=== PATIENT | male | born 1960 | race African-American/Black ===

== ENCOUNTER 2020-01-31 17:28 | Emergency (ER) | payer OTHER ==
[~2020-01-31] VITALS: Ht 175.3 cm; Wt 104.3 kg
--- NOTE | 2020-01-31 17:35 | NUR ---
PT BIB SELF C/O SUICIDAL IDEATION "Thoughts of killing myself NO plans." PT IS AAOX4, NOT IN RESPIRATORY DISTRESS, V/S STABLE, KEPT RESTED AND COMFORTABLE, WILL CONTINUE TO MONITOR.
--- NOTE | 2020-01-31 17:50 | NUR ---
SEEN AND EXAMINED BY .
--- NOTE | 2020-01-31 18:00 | NUR ---
URINE SPECIMEN COLLECTED AND SENT TO LAB.
[2020-01-31 18:30] LABS: APPEARANCE,URINE Clear (CLEAR); BACTERIA,URINE None seen /HPF (None Seen); BILIRUBIN,URINE Negative (NEGATIVE); BLOOD, URINE Negative Ery/uL (NEGATIVE); COLOR,URINE Yellow (YELLOW); KETONES,URINE 40 (NEGATIVE); LEUKOCYTE ESTERASE ,URINE Negative (NEGATIVE); NITRITE, URINE Negative (NEGATIVE); PH,URINE >9.0 (5.0-8.0); PROTEIN,URINE Negative (NEGATIVE); RBC,URINE 0-2 /HPF (0-2); SQUAMOUS EPITHELIAL CELL,UR Few /HPF (None Seen); UGLUCOSE Negative (NEGATIVE); UROBILINOGEN,URINE 0.2 EU/dL (0.2); WBC,URINE 0-2 /HPF (0-3)
[2020-01-31 18:32] LABS: BASOPHILS % (AUTO) 0.8 % (0.0-2.0); EOSINOPHILS % (AUTO) 2.5 % (0.0-6.0); HEMATOCRIT 44 % (39-51); HEMOGLOBIN 14.2 g/dL (13.5-17.5); LYMPHOCYTES % (AUTO) 38.5 % (20.0-44.0); MEAN CORPUSCULAR HGB CONC 33 g/dl (31.0-36.0); MEAN CORPUSCULAR VOLUME 86 fL (80-96); MONOCYTES # (AUTO) 0.7 /CMM (0.1-1.30); MONOCYTES % (AUTO) 13.4 % (2.0-12.0); NEUTROPHILS # (AUTO) 2.3 /CMM (1.8-8.9); NEUTROPHILS % (AUTO) 44.8 % (43.0-81.0); PLATELET COUNT (AUTO) 202 /CMM (150-450); RED BLOOD CELL COUNT(AUTO) 5.05 MIL/uL (4.5-6.0); WHITE BLOOD COUNT (AUTO) 5.1 K/uL (4.3-11.0)
[2020-01-31 18:40] LABS: CALCIUM, SERUM 9.4 mg/dL (8.5-10.1); CARBON DIOXIDE 27 mmol/L (21-32); CHLORIDE 102 mmol/L (98-107); CREATININE 1.4 mg/dL (0.6-1.3); GLUCOSE 96 mg/dL (74-106); POTASSIUM 4.7 mmol/L (3.5-5.1); SODIUM SERUM 137 mmol/L (136-145); UREA NITROGEN, BLOOD 23 mg/dL (7-18)
[2020-01-31 18:56] LABS: ALANINE AMINOTRANSFERASE 30 U/L (12-78); ALBUMIN 3.5 g/dL (3.4-5.0); ALCOHOL, BLOOD < 3 mg/dL (0-0); ALKALINE PHOSPHATASE 92 U/L (46-116); ASPARTATE AMINOTRANSFERASE 41 U/L (15-37); BILIRUBIN,TOTAL 0.4 mg/dL (0.2-1.0); SALICYLATE 3.4 mg/dL (2.8-20.0)
[2020-01-31 18:57] LABS: ACETAMINOPHEN 0 ug/ml (10-30)
[2020-01-31] MEDS ORDERED: DICYCLOMINE HCL 10 MG CAPSULE PO ONE (20:57)
[2020-01-31] MEDS ORDERED: PANTOPRAZOLE 40 MG VIAL ONE (20:57)
[2020-01-31] MEDS ORDERED: ONDANSETRON HCL/PF 4 MG/2 ML VIAL ONE (20:57)
[2020-01-31] MEDS ORDERED: FAMOTIDINE/PF INJ 20 MG/2 ML VIAL IV ONE (20:58)
--- NOTE | 2020-01-31 21:17 | NUR ---
SPOKE TO PT, PT STATED HE IS SUICIDAL WITH PLAN TO CUT HIS WRIST. -HI.
--- NOTE | 2020-01-31 21:43 | NUR ---
CLINICAL FAXED TO [facility] FOR VOLUNTARY ADMISSION.
--- NOTE | 2020-01-31 22:04 | NUR ---
accepted at [facility] [id number] [phone] --[phone] update once we have ambulanc eta
--- NOTE | 2020-01-31 22:08 | NUR ---
CALLED [facility] FOR BLS PICKUP. ETA ABOUT 2.5 HOURS
--- NOTE | 2020-01-31 22:23 | NUR ---
CALLED [facility] IN TAKE [phone] AND INFORMED THEM OF THE 2.5 HOUR ETA
[2020-01-31 23:20] VITALS: BP 149/89
--- NOTE | 2020-01-31 23:23 | NUR ---
REPORT GIVEN TO YAS GUERRA FOR ROB
--- NOTE | 2020-02-01 00:31 | NUR ---
REPORT GIVEN TO DONN BATISTA. PT TRANSFERED.
== END 2020-02-01 00:32 ==
LOC: ER 17:33
DX: R45.851 Suicidal ideations (principal); F19.10 Other psychoactive substance abuse, uncomplicated; I10 Essential (primary) hypertension; E11.9 Type 2 diabetes mellitus without complications; Z98.890 Other specified postprocedural states; Z59.0 Homelessness
CPT/HCPCS: 36415; 80048; 80076; 80305; 80307; 80329; 81001; 85025; 99285; G0480; 81000-TC; C9113; J2405; J3490

== ENCOUNTER 2020-09-01 07:46 | Emergency (ER) | payer OTHER ==
[~2020-09-01] VITALS: Ht 175.3 cm; Wt 108.9 kg
--- NOTE | 2020-09-01 08:03 | NUR ---
CAME IN FOR SUICIDAL IDEATION PLAN TO JUMP OFF A BUILDING, +HEARING VOICES, TO ER BED 14. HOOKED TO MONITOR. CHANGED TO HOSP GOWN, WARM BLANKET PROVIDED, PATIENT AAO X4. BREATHING EVEN AND UNLABORED. SITTER AT BEDSIDE FOR SAFETY. DR KIRAN AT BEDSIDE FOR EVAL
[2020-09-01] MEDS ORDERED: QUETIAPINE FUMARATE 100 MG TABLET PO STA (08:05)
--- NOTE | 2020-09-01 08:35 | NUR ---
URINE SAMPLE COLLECTED AND SENT TO LAB
--- NOTE | 2020-09-01 08:36 | NUR ---
RAPID COVID19 SWAB DONE AND SENT TO LAB
[2020-09-01 08:54] LABS: BASOPHILS # (AUTO) 0.1 /CMM (0.0-0.2); BASOPHILS % (AUTO) 0.9 % (0.0-2.0); HEMATOCRIT 46 % (39-51); LYMPHOCYTES # (AUTO) 1.9 /CMM (0.8-4.8); LYMPHOCYTES % (AUTO) 27.8 % (20.0-44.0); MEAN CORPUSCULAR HGB CONC 32 g/dl (31.0-36.0); MEAN CORPUSCULAR VOLUME 87 fL (80-96); MONOCYTES # (AUTO) 0.8 /CMM (0.1-1.30); MONOCYTES % (AUTO) 12.2 % (2.0-12.0); NEUTROPHILS # (AUTO) 3.9 /CMM (1.8-8.9); NEUTROPHILS % (AUTO) 58.1 % (43.0-81.0); PLATELET COUNT (AUTO) 231 /CMM (150-450); RED BLOOD CELL COUNT(AUTO) 5.31 MIL/uL (4.5-6.0); WHITE BLOOD COUNT (AUTO) 6.7 K/uL (4.3-11.0)
[2020-09-01 09:04] LABS: CALCIUM, SERUM 9.6 mg/dL (8.5-10.1); CARBON DIOXIDE 24 mmol/L (21-32); CHLORIDE 102 mmol/L (98-107); CREATININE 1.5 mg/dL (0.6-1.3); GLUCOSE 76 mg/dL (74-106); POTASSIUM 3.6 mmol/L (3.5-5.1); SODIUM SERUM 140 mmol/L (136-145); UREA NITROGEN, BLOOD 25 mg/dL (7-18)
[2020-09-01 09:19] LABS: ALANINE AMINOTRANSFERASE 31 U/L (12-78); ALCOHOL, BLOOD < 3 mg/dL (0-0); ALKALINE PHOSPHATASE 79 U/L (46-116); ASPARTATE AMINOTRANSFERASE 47 U/L (15-37); BILIRUBIN,DIRECT 0.2 mg/dL (0.0-0.2); BILIRUBIN,TOTAL 0.6 mg/dL (0.2-1.0); TOTAL PROTEIN, SERUM 8.2 g/dL (6.4-8.2)
[2020-09-01 09:28] LABS: ACETAMINOPHEN < 10 ug/ml (10-30)
[2020-09-01 09:37] LABS: BILIRUBIN,URINE NEGATIVE (NEGATIVE); BLOOD, URINE SMALL Ery/uL (NEGATIVE); COLOR,URINE YELLOW (YELLOW); LEUKOCYTE ESTERASE ,URINE NEGATIVE (NEGATIVE); NITRITE, URINE NEGATIVE (NEGATIVE); PH,URINE 5.5 (5.0-8.0); PROTEIN,URINE NEGATIVE (NEGATIVE); UGLUCOSE NEGATIVE (NEGATIVE); UROBILINOGEN,URINE 0.2 EU/dL (0.2)
[2020-09-01 10:27] LABS: BACTERIA,URINE Rare /HPF (None Seen); RBC,URINE 0-3 /HPF (0-2); WBC,URINE 0-2 /HPF (0-3)
[2020-09-01 10:28] LABS: SQUAMOUS EPITHELIAL CELL,UR Rare /HPF (None Seen)
--- NOTE | 2020-09-01 11:06 | NUR ---
Dope Sprayer met with the patient at bedside at [facility] ED. Patient presented to [facility] ED with suicidal ideation to jump off a building. Patient is alert and oriented x4. Patient is receptive to speaking to this SW. Patient is a 59 year-old male. Patient reported to this SW that he had gone to [facility] prior to [facility] and was informed he needed medical clearance. Patient reported to this SW that he has been homeless for approximately one year and had been staying at a [facility] however patient reported he cannot return. SW and patient discussed the need for homeless community resources and patient accepted these resources. Patient and SW discussed presenting complaint of suicidal ideation and patient reported that he remains suicidal as he is having auditory hallucinations. Patient reports these auditory hallucinations tell him to hurt himself. Patient denies visual hallucinations. Patients suicidal ideation plan to jump off a building remains. Patient denied homicidal ideation. Patient reported that he has been diagnosed with Schizophrenia and Bipolar several years ago. Patient reported that the last time he took his medications for Schizophrenia and Bipolar was last week and at this time does not have a prescription. SW and patient discussed voluntary psychiatric hospitalization. SW informed patient that this SW can refer the patient to [facility] however patient declined this referral as he wants to be referred to [facility]. SW will refer the patient to [facility] as requested. Plan: SW to fax clinicals to [facility] Intake (fax) and SW will inform Tray at [facility] regarding this referral. WALESKA will follow up with [facility] if no update is provided.
--- NOTE | 2020-09-01 11:41 | NUR ---
SW filled out homeless patient waiver form and left copy for patient to sign in patient's chart. Patient asked this SW to have him sign closer to transfer time as patient wanted to get some rest. WALESKA will follow-up with ED staff to ensure homeless patient waiver form is signed prior to departure. WALESKA provided the following resources to this patient: Substance Abuse resources provided included: [facility] Substance Abuse Self-Helpline ([facility]) ; CRI -HELP 26876 [facility]. [place] [address] ; [facility] [address] [facility] [address] ; [facility] 07195 [facility] [address] ; [facility] 400 [facility] [address]0004 ; [facility] 5850 Mino Gonzalez [facility] [address] ; Suzi [facility] 902 [facility] [address] ; [facility] Substance Abuse Helpline([facility] ; [facility] Family Counseling ; [facility] [place]; [facility] Aubrey; Cri-Help [place]; I-ADARP Inter Agency Drug Abuse Recovery Mino Gonzalez; [place] [facility] Sigurd; Carlos [place] Sigurd; Tarzana [facility], [facility]. [place]; Alcoholics Anonymous -SFV; Xk-Spbl-Qpftrwi ; Marijuana Anonymous -SFV; Narcotics Anonymous www.na.org. Hygiene: [facility] HillCA: [address] Dwaine Schofield ; [facility] 22872 [facility] Reseda ; [facility] [address]01 [place] Avluan [place] . Food Resources: [place] Food Pantry at [facility]- [address] [place]; Meet Each Need with Dignity ([facility]) 20959 [facility] Heart; [facility] Food Pantry 4392 ChlorideRegional Health Services [facility]; [facility] 1613 [place] luan [place]. Mental Health resources provided: [facility] 114[address] [place], [place] [address] ; [facility] Mental Health Center, Inc. 02428 [facility] UNIT 2, [place], [place] [id number] ; [facility] [address] M[address] DrBaltimore, [place] [phone] ; [facility] [address] [place], [place] [phone] Healthcare Clinics: [facility] 6551 [facility], [address] [place]. [place] ; [facility] 6801 [facility] [address] [place] [address]; [facility] [address]625 [facility]. [place] [phone] Winter Shelters: [facility] [place] [facility] [address] [facility] [address] 67 Coed; [facility] [place] AV YouthBuild [address] St[facility] Falls [facility], [address] 27 Co[place]; Hope of the [place]* [facility] Confidential (please call for location) 52 Coed; [facility] [place] CINDY Mondragon Orem 510 Cindy Cid [address] 75 Coed; [facility] [place] [facility] [address] [place], [address] 15 Women; [facility] Association [facility] 566 S. [facility] [address] 49 Coed; First To Serve* [facility] 7600 [facility], [address] 73 Coed; [facility] [address], [address] 20 Women; Home At Last [facility] [address] [place] [address], [address] 63 Coed; [facility] [address], [address] 20 Women; Home At Last [address], [address] 63 Coed; Home at Last [facility] Facility [address], [address] 20 Males; Home At Last [facility] MARCIAL Baptist [address] , [address] 20 EDWIGE; [facility] [place] * Library [address] [address] 80 Coed; Winter Retirement Program Sites Transportation fish bait picker at [facility] Stop (near the Gas Station) - Louise Redmond/CINDY Alexandre [address] Time: 3:30p.m. to 4:15p.m. and [facility] at [address] [facility] [address] Time: 5:00p.m. No walk-ins allowed. Individuals must be picked up at [facility] ([address] [place] [address]) to access the site. Transportation by bus.
--- NOTE | 2020-09-01 11:54 | NUR ---
SW followed up with [facility] and spoke with Janay. Janay reported to this SW patient clinicals have been received and acceptance pending from nursing solar installation crew supervisor. Janay informed this SW that [facility] would provide accepting information to this SW following acceptance from nursing solar installation crew supervisor. SW remains available for all needs regarding this patient.
--- NOTE | 2020-09-01 12:04 | NUR ---
SW received a call from [facility] Intake client account representative Art. Art provided accepting information to this SW. Patient will be under the care [place] [address]. Patient will be going to Unit 2. Number for report is . Plan: SW will provide this information to ED staff to assist in a safe and proper transfer for this patient.
--- NOTE | 2020-09-01 12:14 | NUR ---
[place] [address]. Patient will be going to Unit 2. Number for report is .
--- NOTE | 2020-09-01 12:19 | NUR ---
CALLED [facility] [phone] [facility] #[phone] WILL CALL US WITH A TRANSPORT.
--- NOTE | 2020-09-01 12:32 | NUR ---
[facility] CALLED ETA 45 MINS WITH [facility].
--- NOTE | 2020-09-01 13:29 | NUR ---
REPORT GIVEN TO LEAH GUERRA [facility]
[2020-09-01 13:30] VITALS: BP 148/86
--- NOTE | 2020-09-01 13:30 | NUR ---
Patient picked up by [facility] UNIT 721 in stable condition. Patient [facility] be transferred to [facility]. Clinicals provided to be given to the hosp.
== END 2020-09-01 13:32 ==
LOC: ER 07:50
DX: F31.9 Bipolar disorder, unspecified (principal); R45.851 Suicidal ideations; Z91.14 Patient's other noncompliance with medication regimen; Z20.828 Contact with and (suspected) exposure to other viral communicable diseases; F20.9 Schizophrenia, unspecified; F15.10 Other stimulant abuse, uncomplicated; F14.10 Cocaine abuse, uncomplicated; N28.9 Disorder of kidney and ureter, unspecified; Z59.0 Homelessness; I10 Essential (primary) hypertension
CPT/HCPCS: 36415; 80048; 80076; 80299; 80307; 80320; 81001; 85025; 87426; 99285; C9803; G0480

== ENCOUNTER 2020-09-30 21:50 | Emergency (ER) | payer OTHER ==
[~2020-09-30] VITALS: Ht 175.3 cm; Wt 108.9 kg
[2020-09-30 22:37] LABS: BASOPHILS # (AUTO) 0.1 /CMM (0.0-0.2); BASOPHILS % (AUTO) 1.2 % (0.0-2.0); EOSINOPHILS % (AUTO) 2.7 % (0.0-6.0); HEMATOCRIT 45 % (39-51); HEMOGLOBIN 14.6 g/dL (13.5-17.5); LYMPHOCYTES # (AUTO) 2.1 /CMM (0.8-4.8); LYMPHOCYTES % (AUTO) 36.7 % (20.0-44.0); MEAN CORPUSCULAR HGB CONC 32 g/dl (31.0-36.0); MEAN CORPUSCULAR VOLUME 88 fL (80-96); MONOCYTES # (AUTO) 0.6 /CMM (0.1-1.30); MONOCYTES % (AUTO) 9.9 % (2.0-12.0); NEUTROPHILS # (AUTO) 2.8 /CMM (1.8-8.9); NEUTROPHILS % (AUTO) 49.5 % (43.0-81.0); PLATELET COUNT (AUTO) 221 /CMM (150-450); RED BLOOD CELL COUNT(AUTO) 5.18 MIL/uL (4.5-6.0); WHITE BLOOD COUNT (AUTO) 5.7 K/uL (4.3-11.0)
[2020-09-30 22:40] LABS: BILIRUBIN,URINE SMALL (NEGATIVE); COLOR,URINE YELLOW (YELLOW); LEUKOCYTE ESTERASE ,URINE Negative (NEGATIVE); NITRITE, URINE Negative (NEGATIVE); PH,URINE 5.5 (5.0-8.0); PROTEIN,URINE 100 mg/dl (NEGATIVE); UGLUCOSE Negative (NEGATIVE); UROBILINOGEN,URINE 0.2 EU/dL (0.2)
[2020-09-30 23:07] LABS: BACTERIA,URINE Rare /HPF (None Seen); SQUAMOUS EPITHELIAL CELL,UR Few /HPF (None Seen); WBC,URINE NONE SEEN /HPF (0-3)
[2020-09-30 23:25] LABS: CALCIUM, SERUM 9.2 mg/dL (8.5-10.1); CARBON DIOXIDE 27 mmol/L (21-32); CHLORIDE 103 mmol/L (98-107); CREATININE 1.1 mg/dL (0.6-1.3); GLUCOSE 85 mg/dL (74-106); SODIUM SERUM 139 mmol/L (136-145); UREA NITROGEN, BLOOD 10 mg/dL (7-18)
[2020-09-30 23:31] LABS: ALANINE AMINOTRANSFERASE 30 U/L (12-78); ALBUMIN 3.6 g/dL (3.4-5.0); ALCOHOL, BLOOD < 3 mg/dL (0-0); ALKALINE PHOSPHATASE 104 U/L (46-116); ASPARTATE AMINOTRANSFERASE 25 U/L (15-37); BILIRUBIN,DIRECT 0.1 mg/dL (0.0-0.2); BILIRUBIN,TOTAL 0.4 mg/dL (0.2-1.0); TOTAL PROTEIN, SERUM 7.5 g/dL (6.4-8.2)
[2020-09-30 23:32] LABS: ACETAMINOPHEN 0 ug/ml (10-30)
--- NOTE | 2020-10-01 00:54 | NUR ---
CALL FROM LAB. RAPID COVIF NEGATIVE.
--- NOTE | 2020-10-01 01:41 | NUR ---
CLINICAL AND FACESHEET FAXED TO [facility] INTAKE FOR VOLUNTARY PSYCH ADMISSION.
--- NOTE | 2020-10-01 02:45 | NUR ---
CALL FROM MICHELLE MARQUEZ. PT ACCEPTED BY DR WHIPPLE. UNIT 1. # FOR REPORT [phone]
--- NOTE | 2020-10-01 02:51 | NUR ---
[facility] CALLED FOR TRANSPORT. [phone]
--- NOTE | 2020-10-01 04:51 | NUR ---
[facility] eta [phone]
--- NOTE | 2020-10-01 05:47 | NUR ---
Report given to Devin GUERRA for continuation of care.
[2020-10-01 06:55] VITALS: BP 173/98
--- NOTE | 2020-10-01 06:55 | NUR ---
report given to emt from [facility] 23 for continuity of care. pt aware of transport. pt aox4 rr even and unlabored. no acute distress noted. per apa took over care, pt placed on gurney to be transported to [facility].
== END 2020-10-01 06:57 ==
LOC: ER 21:53
DX: R45.851 Suicidal ideations (principal); F31.9 Bipolar disorder, unspecified; F19.10 Other psychoactive substance abuse, uncomplicated; I10 Essential (primary) hypertension; Z59.0 Homelessness; Z20.822 Contact with and (suspected) exposure to COVID-19
CPT/HCPCS: 36415; 80048; 80076; 80299; 80307; 80320; 81001; 85025; 87426; 99285; C9803; G0480

== ENCOUNTER 2021-02-03 09:57 | Emergency (ER) | payer OTHER ==
[~2021-02-03] VITALS: Ht 175.3 cm; Wt 108.9 kg
[2021-02-03 10:39] LABS: BASOPHILS # (AUTO) 0.1 /CMM (0.0-0.2); BASOPHILS % (AUTO) 0.7 % (0.0-2.0); EOSINOPHILS % (AUTO) 0.2 % (0.0-6.0); HEMATOCRIT 50 % (39-51); HEMOGLOBIN 16.2 g/dL (13.5-17.5); LYMPHOCYTES # (AUTO) 2.4 /CMM (0.8-4.8); LYMPHOCYTES % (AUTO) 23.1 % (20.0-44.0); MEAN CORPUSCULAR HGB CONC 32 g/dl (31.0-36.0); MEAN CORPUSCULAR VOLUME 88 fL (80-96); MONOCYTES # (AUTO) 1.2 /CMM (0.1-1.30); MONOCYTES % (AUTO) 11.4 % (2.0-12.0); NEUTROPHILS # (AUTO) 6.8 /CMM (1.8-8.9); NEUTROPHILS % (AUTO) 64.6 % (43.0-81.0); PLATELET COUNT (AUTO) 205 /CMM (150-450); WHITE BLOOD COUNT (AUTO) 10.5 K/uL (4.3-11.0)
[2021-02-03 10:47] LABS: CALCIUM, SERUM 10.2 mg/dL (8.5-10.1); CARBON DIOXIDE 25 mmol/L (21-32); CHLORIDE 103 mmol/L (98-107); CREATININE 1.4 mg/dL (0.6-1.3); GLUCOSE 121 mg/dL (74-106); POTASSIUM 3.8 mmol/L (3.5-5.1); SODIUM SERUM 139 mmol/L (136-145); UREA NITROGEN, BLOOD 16 mg/dL (7-18)
[2021-02-03] MEDS: QUETIAPINE FUMARATE 100 MG TABLET PO SCH (10:49)
--- NOTE | 2021-02-03 10:49 | NUR ---
MEDICATED ORDERED. SEE EMAR. PT STILL UNABLE TO PROVIDE URINE SPECIMEN AT THIS TIME.
[2021-02-03 10:54] LABS: ACETAMINOPHEN 0 ug/ml (10-30); ALANINE AMINOTRANSFERASE 35 U/L (12-78); ALBUMIN 4.3 g/dL (3.4-5.0); ALCOHOL, BLOOD < 3 mg/dL (0-0); ALKALINE PHOSPHATASE 101 U/L (46-116); ASPARTATE AMINOTRANSFERASE 35 U/L (15-37); BILIRUBIN,DIRECT 0.2 mg/dL (0.0-0.2); BILIRUBIN,TOTAL 0.6 mg/dL (0.2-1.0); TOTAL PROTEIN, SERUM 8.7 g/dL (6.4-8.2)
--- NOTE | 2021-02-03 11:29 | NUR ---
COVID SWAB SENT.
[2021-02-03 11:40] LABS: BILIRUBIN,URINE SMALL (NEGATIVE); COLOR,URINE YELLOW (YELLOW); LEUKOCYTE ESTERASE ,URINE Negative (NEGATIVE); NITRITE, URINE Negative (NEGATIVE); PROTEIN,URINE 100 mg/dl (NEGATIVE); UGLUCOSE Negative (NEGATIVE); UROBILINOGEN,URINE 0.2 EU/dL (0.2)
[2021-02-03 11:54] LABS: BACTERIA,URINE Rare /HPF (None Seen); SQUAMOUS EPITHELIAL CELL,UR Rare /HPF (None Seen); WBC,URINE 0-2 /HPF (0-3)
--- NOTE | 2021-02-03 12:36 | NUR ---
SCVN referral: WALESKA faxed clinicals to [facility] [[address] [place] [address] FAX [phone]] for Voluntary inpatient psychiatric treatment.
--- NOTE | 2021-02-03 12:50 | NUR ---
"SS Consult: SS consult requested for SI & Homelessness. The pt. is a 60-year-old Black male. SW met with pt. bedside. The pt. is alert & oriented x 4. The pt. appears unkempt, makes good eye contact and remained calm & cooperative throughout interview. Per pt. he is currently experiencing racing thoughts, visual hallucinations(shadows) & auditory hallucinations (voices that tell him to kill himself). Per pt. he is currently having SI with plan to hang himself. Pt. stated SI began 2 days ago and has gotten increasingly worse. Pt. denies anything triggering these thoughts. SW offered pt. voluntary placement at a psych facility for treatment & pt. agreed. WALESKA explored pt.s mental health Hx. Per pt., he has been diagnosed with Schizophrenia & depression in the past and has been prescribed with Seroquel & Haldol. Per pt. he last took his medications about 3 days ago. Per pt. he self-medicates by using Amphetamine (about every 3 weeks) & crack cocaine (about every 3 weeks). Per pt. he last used 02/02/2021. Pt. stated, it helps with the voices. WALESKA explored pt.s living & financial situation. Pt. stated he has been experiencing homelessness for the last 4-5 years and receives food stamps & General Relief. WALESKA explored pt.s support system. Pt. stated that he has father, Wood Payne [phone] and FSP Worker, An (could not provide phone number). Plan: WALESKA referred pt. to [facility] [[address] [place] [address] ] for inpatient psychiatric treatment. Patient signed homeless waiver & it was placed in pt.s chart. WALESKA provided pt. with the following homeless resources & pt. accepted them: Substance Abuse resources provided included: [facility] Substance Abuse Self-Helpline ([facility]) ; CRI -HELP 21731 [facility]. [place] [address] ; [address] [address] ; [facility] [address] [address] DilanPortland [facility]. [place] [phone] ; [facility] [address] [facility] [address] ; [facility] 4940 Van Ameenaadrienne vd [facility] [address] ; [facility] 909 Formerly [facility] [id number] ; [facility] Substance Abuse Helpline(SAS)-[facility] ; [facility] Family Counseling ; [facility] [place]; [facility] [place]; Cri-Help [place]; I-ADARP Inter Agency Drug Abuse Recovery Mino Gonzalez; [place] [facility] Sylregional rehabilitation hospital; [place]; [facility] [place]; [facility], [facility]; Alcoholics Anonymous -SFV; Ic-Qnzq-Mtmzckc ; Marijuana Anonymous -SFV; Narcotics Anonymous www.na.org; Year-round shelters: [place] Rienzi [address] [place] [address] ; [place] Rescue Rienzi [address] [place] [address]; [place] Rescue Upzmyrg8536 [facility] [address] Winter Shelters: Davin Lua Provider: [facility] [place] Address: [address] [place], [address] # of Beds: 47 Population Served: Coed SPA 6 | [facility] Dilma Chaidez Chanell Provider: Home at Last Address: [address] [facility], [address] # of Beds: 66 Population Served: Gabriele S[place] Tribe [place] Provider: First to Serve Address: [address]33 [facility], [address] # of Beds: 56 Population Served: Gabriele Kel [place] Provider: /Ms. Ochoa'batsheva House Address: 8908 [facility], [address] # of Beds: 49 Population Served: [facility] T[facility]yn SPA 8 | [facility] Provider: First to Serve Address: 7515 [facility], [address] # of Beds: 37 Population Served: [facility] Hygiene: [place] [facility]: [address]7982 [facility] [place] [facility] ; South [facility] 95161 [facility] ; [facility] 6903 [facility] . Food Resources: South Heart Food Pantry at [facility]- 5700 [facility]; Meet Each Need with Dignity ([facility]) [address]2656 [facility]; [facility] Food Pantry 4330 [facility]; [facility] 8550 [facility]. Mental Health resources provided: [facility] [address] [place], [place] [id number] ; [facility] Mental Health Center, Inc. 24502 [facility] UNIT 2, [place], [place] [address] ; [place] Abhi [facility]gent [facility] [address] [place] [address] ; [facility] [address] [place], [place] [phone] Healthcare Clinics: [facility] 6551 [facility], [address] [place]. [place] ; [facility] 6801 [facility] [address] [place] [address]; [facility] [address]99 [facility] [place] [address] [phone] Counseling--Outpatient [facility] [address] [place], [place] [address] (Specializes in in-depth psychotherapy for emotional distress: anxiety, depression, interpersonal conflicts, life transitions, childhood abuse) [facility] [address] [place] [address] (Assist with solving problem marital difficulties, separation & divorce, aging parents, & grief, chronic & terminal illness) [facility] [address] [place] [address] (Deal with loss & grief, anxiety, marital difficulties) Homebound/Mental Health Services 22442 [facility], [address] [place] [address] (Provide in-home mental services to people who are incapable of leaving their homes) Organization for Needs of the Elderly Senior Service/Resource Center [address] [place] [address] [facility] [address] [place] [address] PSYCHIATRIC OUTPATIENT SERVICES [facility] Partial Hospitalization and Intensive Outpatient Program (Managed Care and [place] Only)[address] Ambia Dalila. [facility] [phone] [facility] Partial Hospitalization and Outpatient [id number] [address]andal jesusita. [address] [place], [place] [phone] [facility] Partial Hospitalization and Outpatient Mccrzap2357 [facility]. [place], [place] [phone] [facility]ly [facility] Mental Health [place] [id number] Lou [facility]. [address] [place], [place] [phone] Motion Picture & Television Hospitaladrienne Partial Hospitalization and Outpatient Hjkseqy60689 EmeliMarshall Medical Center South Mino GonzalezHIALEAH, [phone] "
--- NOTE | 2021-02-03 14:04 | NUR ---
FAXED NEGATIVE COVID TO JERMAINE [facility]ILL[facility].
--- NOTE | 2021-02-03 17:59 | NUR ---
PER DARRYN FROM INTAKE, DID NOT RECEIVE CODID RESULT FAXED EARLIER, FAXED COVID RESULT TO [facility] INTAKE
--- NOTE | 2021-02-03 18:54 | NUR ---
DR. GARRETT, UNIT 2. [phone].
--- NOTE | 2021-02-03 19:01 | NUR ---
ACCEPTANCE INFO: PT HAS BEED ACCEPTED TO [facility]. PLEASE SEND PATIENT AFTER 1930. PT ACCEPTED UNDER THE CARE OF DR. GARRETT. PT WILL BE GOING TO UNIT 2. NUMBER FOR REPORT [phone].
--- NOTE | 2021-02-03 19:05 | NUR ---
CALLED [facility] FOR TRANSPORT TO [facility]. ETA 30-45 MINUTES.
[2021-02-03 19:06] VITALS: BP 157/90
--- NOTE | 2021-02-03 19:35 | NUR ---
REPORT GIVEN TO MONROE GUERRA AT [facility]. [facility] to [facility] in stable condition. No distress noted.
== END 2021-02-03 19:37 ==
LOC: ER 10:00
DX: R45.851 Suicidal ideations (principal); F29 Unspecified psychosis not due to a substance or known physiological condition; F31.9 Bipolar disorder, unspecified; I10 Essential (primary) hypertension; Z20.822 Contact with and (suspected) exposure to COVID-19
CPT/HCPCS: 36415; 80048; 80076; 80299; 80307; 80320; 81001; 85025; 87426; 99285; C9803; G0480

== ENCOUNTER 2021-02-22 21:10 | Emergency (ER) | payer OTHER ==
[~2021-02-22] VITALS: Ht 175.3 cm; Wt 108.9 kg
--- NOTE | 2021-02-22 21:40 | NUR ---
PT BIBSELF C/O SUICIDAL IDEATION WITH PLAN TO CUT WRISTS. PT AAOX4, CALM AND COOPERATIVE. NOTED HYPERTENSION ON ARRIVAL, MD AWARE. PT STATES HE IS NONCOMPLIANT WITH MEDICATIONS. PT AMBULATORY WITH STEADY GAIT. NO ACUTE DISTRESS NOTED AT THIS TIME. WILL CONTINUE TO MONITOR
--- NOTE | 2021-02-22 21:45 | NUR ---
JAROCHO LEVI AT BEDSIDE FOR EVALUATION
[2021-02-22 22:00] LABS: BASOPHILS # (AUTO) 0.1 /CMM (0.0-0.2); EOSINOPHILS % (AUTO) 0.4 % (0.0-6.0); HEMATOCRIT 48 % (39-51); HEMOGLOBIN 15.5 g/dL (13.5-17.5); LYMPHOCYTES # (AUTO) 2.3 /CMM (0.8-4.8); LYMPHOCYTES % (AUTO) 25.8 % (20.0-44.0); MEAN CORPUSCULAR HGB CONC 32 g/dl (31.0-36.0); MEAN CORPUSCULAR VOLUME 88 fL (80-96); MONOCYTES % (AUTO) 10.8 % (2.0-12.0); NEUTROPHILS # (AUTO) 5.5 /CMM (1.8-8.9); PLATELET COUNT (AUTO) 230 /CMM (150-450); WHITE BLOOD COUNT (AUTO) 8.9 K/uL (4.3-11.0)
[2021-02-22] MEDS ORDERED: ATENOLOL 50 MG TABLET PO ONE (22:00)
[2021-02-22 22:03] LABS: BILIRUBIN,URINE SMALL (NEGATIVE); COLOR,URINE YELLOW (YELLOW); LEUKOCYTE ESTERASE ,URINE Negative (NEGATIVE); NITRITE, URINE Negative (NEGATIVE); PROTEIN,URINE >=300 mg/dl (NEGATIVE); UGLUCOSE Negative (NEGATIVE); UROBILINOGEN,URINE 0.2 EU/dL (0.2)
[2021-02-22 22:11] LABS: CALCIUM, SERUM 9.7 mg/dL (8.5-10.1); CARBON DIOXIDE 27 mmol/L (21-32); CHLORIDE 104 mmol/L (98-107); CREATININE 1.3 mg/dL (0.6-1.3); GLUCOSE 95 mg/dL (74-106); POTASSIUM 4.3 mmol/L (3.5-5.1); SODIUM SERUM 140 mmol/L (136-145); UREA NITROGEN, BLOOD 14 mg/dL (7-18)
[2021-02-22 22:13] LABS: BACTERIA,URINE Rare /HPF (None Seen); SQUAMOUS EPITHELIAL CELL,UR Few /HPF (None Seen); WBC,URINE NONE SEEN /HPF (0-3)
[2021-02-22 22:19] LABS: ALANINE AMINOTRANSFERASE 30 U/L (12-78); ALCOHOL, BLOOD < 3 mg/dL (0-0); ALKALINE PHOSPHATASE 107 U/L (46-116); ASPARTATE AMINOTRANSFERASE 17 U/L (15-37); BILIRUBIN,DIRECT 0.1 mg/dL (0.0-0.2); BILIRUBIN,TOTAL 0.3 mg/dL (0.2-1.0); TOTAL PROTEIN, SERUM 8.4 g/dL (6.4-8.2)
[2021-02-22 22:21] LABS: ACETAMINOPHEN < 2 ug/ml (10-30)
--- NOTE | 2021-02-22 22:37 | NUR ---
COVID NEGATIVE PER LAB
[2021-02-22] MEDS ORDERED: ATENOLOL 50 MG TABLET ONE (22:42)
--- NOTE | 2021-02-22 23:17 | NUR ---
CLINICAL AND FACESHEET [facility]ED [facility] FOR VOLUNTARY PSYCH ADMISSION.
--- NOTE | 2021-02-23 00:44 | NUR ---
Fazal vargas in ED - 02/23/21 at 0243 by RODRIGO PAMELLA LATHAM LCSW AT BEDSIDE TO KARLA DOUGLAS.
[2021-02-23] MEDS ORDERED: CLONIDINE HCL 0.1 MG TABLET ONE (02:46)
[2021-02-23] MEDS ORDERED: CLONIDINE HCL 0.1 MG TABLET PO ONE (03:00)
--- NOTE | 2021-02-23 03:08 | NUR ---
PT ASLEEP, NO ACUTE DISTRESS NOTED, RESP EVEN AND UNLABORED. CALL LIGHT WIHTIN REACH. WILL CONTINUE TO MONITOR PT. 1:1 SITTER AT BEDSIDE FOR PT SAFETY.
--- NOTE | 2021-02-23 04:05 | NUR ---
REC'D A CALL FROM [facility]: [facility] BY DR WEAVER. # FOR REPORT: [phone]
--- NOTE | 2021-02-23 04:25 | NUR ---
CALLED CALL THE CAR AND SPOKE TO [facility]. TRANSPORTATION WAS RESERVED FROM [facility] TO [facility], NO RESERVATION NUMBER THEIR SYSTEM IS DOWN
--- NOTE | 2021-02-23 05:15 | NUR ---
[id number]SP[facility] ([facility]) ETA [phone]
--- NOTE | 2021-02-23 05:53 | NUR ---
REPORT GIVEN TO EDIE GUERRA FOR ROB.
--- NOTE | 2021-02-23 08:45 | NUR ---
THE PATIENT IS DISCHARGED FROM ER IN STABLE CONDITION VIA [facility].
[2021-02-23 08:53] VITALS: BP 137/82
== END 2021-02-23 08:53 ==
LOC: ER 21:15
DX: R45.851 Suicidal ideations (principal); F20.9 Schizophrenia, unspecified; Z91.14 Patient's other noncompliance with medication regimen; Z20.822 Contact with and (suspected) exposure to COVID-19; F31.9 Bipolar disorder, unspecified; F19.10 Other psychoactive substance abuse, uncomplicated; I10 Essential (primary) hypertension
CPT/HCPCS: 36415; 80048; 80076; 80143; 80307; 80320; 81001; 85025; 87426; 99285; C9803; G0480

== ENCOUNTER 2021-09-22 10:50 | Emergency (ER) | payer OTHER ==
[~2021-09-22] VITALS: Ht 175.3 cm; Wt 108.9 kg
--- NOTE | 2021-09-22 11:06 | NUR ---
PT BIB SELF C/O "Been Having thoughts of hurting myself x1wk this am wanted to slash wrist". PT DENIES HURTING SELF IN PAST. PT A/OX4. TOLERATING R/A WELL WITH NO SOB. SAFETY 1:[address]
[2021-09-22 11:30] LABS: BASOPHILS # (AUTO) 0.1 K/uL (0.0-0.2); BASOPHILS % (AUTO) 1.2 % (0.0-2.0); BILIRUBIN,URINE NEGATIVE (NEGATIVE); COLOR,URINE YELLOW (YELLOW); EOSINOPHILS % (AUTO) 1.7 % (0.0-6.0); HEMATOCRIT 47 % (39-51); HEMOGLOBIN 15.8 g/dL (13.5-17.5); LEUKOCYTE ESTERASE ,URINE NEGATIVE (NEGATIVE); LYMPHOCYTES # (AUTO) 2.2 K/uL (0.8-4.8); LYMPHOCYTES % (AUTO) 40.8 % (20.0-44.0); MEAN CORPUSCULAR HGB CONC 33 g/dl (31.0-36.0); MEAN CORPUSCULAR VOLUME 86 fL (80-96); MONOCYTES # (AUTO) 0.6 K/uL (0.1-1.30); MONOCYTES % (AUTO) 11.5 % (2.0-12.0); NEUTROPHILS # (AUTO) 2.4 K/uL (1.8-8.9); NEUTROPHILS % (AUTO) 44.8 % (43.0-81.0); NITRITE, URINE NEGATIVE (NEGATIVE); PH,URINE 5.5 (5.0-8.0); PLATELET COUNT (AUTO) 258 K/uL (150-450); PROTEIN,URINE NEGATIVE (NEGATIVE); RED BLOOD CELL COUNT(AUTO) 5.49 MIL/uL (4.5-6.0); UGLUCOSE NEGATIVE (NEGATIVE); UROBILINOGEN,URINE 0.2 EU/dL (0.2); WHITE BLOOD COUNT (AUTO) 5.4 K/uL (4.3-11.0)
[2021-09-22 11:51] LABS: CARBON DIOXIDE 30 mmol/L (21-32); CHLORIDE 97 mmol/L (98-107); CREATININE 1.3 mg/dL (0.6-1.3); GLUCOSE 99 mg/dL (74-106); POTASSIUM 4.2 mmol/L (3.5-5.1); SODIUM SERUM 137 mmol/L (136-145); UREA NITROGEN, BLOOD 15 mg/dL (7-18)
[2021-09-22 11:56] LABS: ALANINE AMINOTRANSFERASE 32 U/L (12-78); ALBUMIN 3.9 g/dL (3.4-5.0); ALCOHOL, BLOOD < 3 mg/dL (0-0); ALKALINE PHOSPHATASE 111 U/L (46-116); ASPARTATE AMINOTRANSFERASE 23 U/L (15-37); BILIRUBIN,DIRECT 0.1 mg/dL (0.0-0.2); BILIRUBIN,TOTAL 0.4 mg/dL (0.2-1.0); TOTAL PROTEIN, SERUM 8.5 g/dL (6.4-8.2)
[2021-09-22 11:58] LABS: ACETAMINOPHEN 0 ug/ml (10-30)
[2021-09-22 12:01] LABS: BACTERIA,URINE Rare /HPF (None Seen); RBC,URINE 0-2 /HPF (0-2); SQUAMOUS EPITHELIAL CELL,UR Few /HPF (None Seen); WBC,URINE 0-2 /HPF (0-3)
--- NOTE | 2021-09-22 12:17 | NUR ---
FOOD PROVIDE TO PT. PT AWAKE AND ALL NEEDS MET AT THIS TIME
--- NOTE | 2021-09-22 12:37 | NUR ---
COVID ANTIGEN SWAB COLLECTED AND GIVEN TO LAB
--- NOTE | 2021-09-22 16:09 | NUR ---
WALESKA faxed clinicals to [facility] [[address] [place] [address] FAX:[phone]] for volantary psychiatric treatment.
--- NOTE | 2021-09-22 17:31 | NUR ---
[facility]
--- NOTE | 2021-09-22 17:54 | NUR ---
PT ACCEPTED TO [facility] UNDER DR. WHIPPLE UNIT 2 PLEASE CALL [phone]. WILL CALL US BACK WITH ETA OF TRANSPORT.
--- NOTE | 2021-09-22 18:01 | NUR ---
REPORT GIVEN TO ARAVIND GUERRA FOR ROB
--- NOTE | 2021-09-22 19:47 | NUR ---
Patient discharged to [facility] in stable condition. Written and verbal after care instructions given. Patient verbalizes understanding of instruction. PT DC VIA AMBULANCE. VSS
[2021-09-22 20:47] VITALS: BP 149/77
== END 2021-09-22 20:48 ==
LOC: ER 10:55
DX: R45.851 Suicidal ideations (principal); F14.10 Cocaine abuse, uncomplicated; F15.10 Other stimulant abuse, uncomplicated; F31.9 Bipolar disorder, unspecified; F20.9 Schizophrenia, unspecified; I10 Essential (primary) hypertension; F17.200 Nicotine dependence, unspecified, uncomplicated
CPT/HCPCS: 36415; 80048; 80076; 80143; 80307; 80320; 81001; 85025; 87426; 99285; C9803; G0480

== ENCOUNTER 2022-07-17 08:27 | Emergency (ER) | payer MEDICAID, OTHER ==
[~2022-07-17] VITALS: Ht 175.3 cm; Wt 99.8 kg
--- NOTE | 2022-07-17 08:50 | NUR ---
PT CHANGED INTO GOWN. SECURITY AT BEDSIDE FOR WANDING.
--- NOTE | 2022-07-17 08:55 | NUR ---
COVID SWAB COLLECTED AND SENT TO LAB
[2022-07-17 09:38] LABS: BASOPHILS % (AUTO) 0.3 % (0.0-2.0); EOSINOPHILS % (AUTO) 1.4 % (0.0-6.0); HEMATOCRIT 48 % (39-51); HEMOGLOBIN 15.7 g/dL (13.5-17.5); LYMPHOCYTES # (AUTO) 1.8 K/uL (0.8-4.8); LYMPHOCYTES % (AUTO) 26.6 % (20.0-44.0); MEAN CORPUSCULAR HGB CONC 33 g/dl (31.0-36.0); MEAN CORPUSCULAR VOLUME 87 fL (80-96); MONOCYTES # (AUTO) 0.8 K/uL (0.1-1.30); MONOCYTES % (AUTO) 11.9 % (2.0-12.0); NEUTROPHILS % (AUTO) 59.8 % (43.0-81.0); PLATELET COUNT (AUTO) 184 K/uL (150-450); RED BLOOD CELL COUNT(AUTO) 5.53 MIL/uL (4.5-6.0); WHITE BLOOD COUNT (AUTO) 6.7 K/uL (4.3-11.0)
[2022-07-17 09:40] LABS: BILIRUBIN,URINE NEGATIVE (NEGATIVE); COLOR,URINE YELLOW (YELLOW); LEUKOCYTE ESTERASE ,URINE NEGATIVE (NEGATIVE); NITRITE, URINE NEGATIVE (NEGATIVE); PH,URINE 5.5 (5.0-8.0); PROTEIN,URINE NEGATIVE (NEGATIVE); UGLUCOSE 100 MG/DL mg/dL (NEGATIVE); UROBILINOGEN,URINE 0.2 EU/dL (0.2)
--- NOTE | 2022-07-17 09:48 | NUR ---
URINE SAMPLE PROVIDED BY PATIENT AND COLLECTED BY LAB.
[2022-07-17 09:53] LABS: BACTERIA,URINE None seen /HPF (None Seen); SQUAMOUS EPITHELIAL CELL,UR Rare /HPF (None Seen); WBC,URINE 0-2 /HPF (0-3)
--- NOTE | 2022-07-17 10:22 | NUR ---
PER LAB, PT IS HARD STICK AND WILL TRY AGAIN FOR RE-DRAW.
[2022-07-17 11:03] LABS: CALCIUM, SERUM 9.3 mg/dL (8.5-10.1); CARBON DIOXIDE 25 mmol/L (21-32); CHLORIDE 94 mmol/L (98-107); CREATININE 1.4 mg/dL (0.6-1.3); GLUCOSE 133 mg/dL (74-106); POTASSIUM 3.1 mmol/L (3.5-5.1); SODIUM SERUM 132 mmol/L (136-145); UREA NITROGEN, BLOOD 31 mg/dL (7-18)
[2022-07-17 11:09] LABS: ALANINE AMINOTRANSFERASE 44 U/L (12-78); ALBUMIN 3.7 g/dL (3.4-5.0); ALKALINE PHOSPHATASE 93 U/L (46-116); ASPARTATE AMINOTRANSFERASE 79 U/L (15-37); BILIRUBIN,DIRECT 0.3 mg/dL (0.0-0.2); BILIRUBIN,TOTAL 1.2 mg/dL (0.2-1.0); TOTAL PROTEIN, SERUM 7.8 g/dL (6.4-8.2)
[2022-07-17 11:11] LABS: ACETAMINOPHEN 0 ug/ml (10-30); ALCOHOL, BLOOD < 3 mg/dL (0-0)
[2022-07-17 13:30] VITALS: BP 152/80
--- NOTE | 2022-07-17 14:33 | NUR ---
WALESKA faxed clinicals to [facility] TEL:[phone] fax:[phone] for [facility] [[facility] [place] [address] FAX:[phone]].
[2022-07-17] MEDS ORDERED: POTASSIUM CHLORIDE 20 MEQ TAB.PRT.SR PO ONE ×2 (15:30→15:31)
--- NOTE | 2022-07-17 17:00 | NUR ---
Pt. has been accepted to [facility] the care of Dr. Barba, nurse to nurse report to b called in to tel: [phone] ext #[phone] and the pt.'s room nurber will be providedby nurse. WALESKA relayed acceptance info to RNSuraj and requested transport.
--- NOTE | 2022-07-17 17:55 | NUR ---
[facility] CALLED FOR TRANSPORT ETA 30 MINS.
--- NOTE | 2022-07-17 18:16 | NUR ---
ATTEMPTED TO GIVE REPORT, PLACED ON A LONG HOLD. PT TRANSPORTED TO [facility] IN STABLE CONDITION.
--- NOTE | 2022-07-17 18:37 | NUR ---
REPORT GIVEN TO ELIN GUERRA.
== END 2022-07-17 18:22 ==
LOC: ER 08:27
DX: R45.851 Suicidal ideations (principal); F19.10 Other psychoactive substance abuse, uncomplicated; F31.9 Bipolar disorder, unspecified; F20.9 Schizophrenia, unspecified; I10 Essential (primary) hypertension; Z20.822 Contact with and (suspected) exposure to COVID-19; F17.200 Nicotine dependence, unspecified, uncomplicated
CPT/HCPCS: 99285; 85025; 80048; 80076; 81001; 36415; 87426; 80143; 80320; 80307; C9803; G0480

== ENCOUNTER 2024-04-22 09:17 | Emergency (ER) | payer OTHER ==
[~2024-04-22] VITALS: Ht 175.3 cm; Wt 99.8 kg
[2024-04-22 10:24] LABS: BASOPHILS % (AUTO) 0.5 % (0.0-2.0); EOSINOPHILS # (AUTO) 0.1 K/uL (0.0-0.7); EOSINOPHILS % (AUTO) 1.4 % (0.0-6.0); HEMATOCRIT 48 % (39-51); HEMOGLOBIN 15.7 g/dL (13.5-17.5); LYMPHOCYTES # (AUTO) 1.8 K/uL (0.8-4.8); LYMPHOCYTES % (AUTO) 32.3 % (20.0-44.0); MEAN CORPUSCULAR HEMOGLOBIN 28 PG (26.0-33.0); MEAN CORPUSCULAR HGB CONC 33 g/dl (31.0-36.0); MEAN CORPUSCULAR VOLUME 87 fL (80-96); MONOCYTES # (AUTO) 0.6 K/uL (0.1-1.30); MONOCYTES % (AUTO) 10.5 % (2.0-12.0); NEUTROPHILS # (AUTO) 3.1 K/uL (1.8-8.9); NEUTROPHILS % (AUTO) 55.3 % (43.0-81.0); PLATELET COUNT (AUTO) 229 K/uL (150-450); RED BLOOD CELL COUNT(AUTO) 5.56 MIL/uL (4.5-6.0); RED CELL DISTRIBUTION WIDTH 14.2 % (11.5-15.0); WHITE BLOOD COUNT (AUTO) 5.7 K/uL (4.3-11.0)
[2024-04-22 10:25] LABS: APPEARANCE,URINE Clear (CLEAR); BILIRUBIN,URINE SMALL (NEGATIVE); BLOOD, URINE Trace-lysed Ery/uL (NEGATIVE); COLOR,URINE YELLOW (YELLOW); KETONES,URINE 15 mg/dL (NEGATIVE); LEUKOCYTE ESTERASE ,URINE Negative (NEGATIVE); NITRITE, URINE Negative (NEGATIVE); PH,URINE 5.5 (5.0-8.0); PROTEIN,URINE Negative (NEGATIVE); UGLUCOSE 100 MG/DL mg/dL (NEGATIVE); UROBILINOGEN,URINE 0.2 EU/dL (0.2)
[2024-04-22 10:36] LABS: AMPHETAMINE, URINE POSITIVE (NEGATIVE); BARBITURATE, URINE NEGATIVE (NEGATIVE); BENZODIAZEPINE, URINE NEGATIVE (NEGATIVE); CANNABINOID, URINE NEGATIVE (NEGATIVE); COCCAINE, URINE POSITIVE (NEGATIVE); OPIATE, URINE NEGATIVE (NEGATIVE); PHENCYCLIDINE SCREEN,URINE NEGATIVE (NEGATIVE)
[2024-04-22 10:38] LABS: CALCIUM, SERUM 9.5 mg/dL (8.5-10.1); CARBON DIOXIDE 27 mmol/L (21-32); CHLORIDE 102 mmol/L (98-107); CREATININE 1.5 mg/dL (0.6-1.3); GLUCOSE 94 mg/dL (74-106); SODIUM SERUM 137 mmol/L (136-145); UREA NITROGEN, BLOOD 24 mg/dL (7-18)
[2024-04-22 10:42] LABS: ADD URINE CULTURE NO; BACTERIA,URINE Few /HPF (None Seen); RBC,URINE 0-2 /HPF (0-2); SQUAMOUS EPITHELIAL CELL,UR Few /HPF (None Seen); WBC,URINE 0-2 /HPF (0-3)
[2024-04-22 10:44] LABS: ALANINE AMINOTRANSFERASE 23 U/L (12-78); ALBUMIN 3.7 g/dL (3.4-5.0); ALCOHOL, BLOOD < 3 mg/dL (0-10); ALKALINE PHOSPHATASE 107 U/L (46-116); ASPARTATE AMINOTRANSFERASE 19 U/L (15-37); BILIRUBIN,DIRECT 0.2 mg/dL (0.0-0.2); BILIRUBIN,TOTAL 0.7 mg/dL (0.2-1.0); SALICYLATE 3.3 mg/dL (2.8-20.0); TOTAL PROTEIN, SERUM 8.2 g/dL (6.4-8.2)
[2024-04-22 10:45] LABS: ACETAMINOPHEN <10 ug/ml (10-30)
[2024-04-22 17:41] VITALS: BP 126/76; TEMP 98.3; O2SAT 98
== END 2024-04-22 17:54 ==
LOC: ER 09:25
DX: R45.851 Suicidal ideations (principal); I10 Essential (primary) hypertension; F20.9 Schizophrenia, unspecified; F31.9 Bipolar disorder, unspecified; M19.90 Unspecified osteoarthritis, unspecified site; F17.200 Nicotine dependence, unspecified, uncomplicated; F19.10 Other psychoactive substance abuse, uncomplicated; Z60.2 Problems related to living alone; Z20.822 Contact with and (suspected) exposure to COVID-19
CPT/HCPCS: 36415; 80048-TC; 80076-TC; 81001; 85025-TC; G0480